=== PATIENT | female | born 1940 | race Caucasian/White ===

== ENCOUNTER → 2022-01-23 13:25 | Outpatient (BNVA) | payer MEDICARE, BC, SELFPAY | PROVIDERS: PCP Pediatrics; Referring Provider Pediatrics; Visit Provider Specialist | DX: G30.9 Alzheimer's disease, unspecified (principal); F02.80 Dementia in other diseases classified elsewhere, unspecified severity, without behavioral disturbance, psychotic disturbance, mood disturbance, and anxiety | CPT/HCPCS: 99204; 99205 ==

== ENCOUNTER 2022-01-23 16:07 | Outpatient (CLI) | payer MEDICARE, BC, SELFPAY ==
[2022-01-23 17:21] LABS: Folate Level 14.1 ng/mL (4.8-37.3)
[2022-01-23 18:23] LABS: Vitamin B12 > 2000 pg/mL (232-1245)
== END 2022-01-23 16:08 | disposition home or self-care (01) ==
LOC: LAB 16:11
PROVIDERS: PCP Pediatrics; Visit Provider Specialist
DX: R20.0 Anesthesia of skin (principal); R20.2 Paresthesia of skin
CPT/HCPCS: 82607; 82746

== ENCOUNTER → 2022-05-23 14:33 | Outpatient (BNVA) | payer MEDICARE, BC, SELFPAY | PROVIDERS: PCP Pediatrics; Visit Provider Specialist | DX: G30.9 Alzheimer's disease, unspecified (principal); F02.80 Dementia in other diseases classified elsewhere, unspecified severity, without behavioral disturbance, psychotic disturbance, mood disturbance, and anxiety | CPT/HCPCS: 96116; 99214 ==